=== PATIENT | male | born 1980 | race Caucasian/White ===

== ENCOUNTER 2016-07-27 14:51 | Emergency (ER) | payer SELFPAY ==
--- NOTE | 2016-07-27 15:35 | PDOC ---
Rapid Medical Evaluation Time Seen by Provider: 07/27/16 15:32 Medical Evaluation: I have performed a brief in-person evaluation of this patient. The patient presents with a chief complaint of: 36 yo M presents with 6/10 pain to L arm. He states he has had the pain for a week, worse x1 day. Does not recall any injury. Pertinent physical exam findings: FROM L shoulder, unable to reproduce pain with ROM. Arm is nontender to palpation. I have ordered the following: none. The patient will proceed to the ED for further evaluation.
[2016-07-27 15:36] VITALS: BP 151/79; PULSE 95; TEMP 98; BMI 26.5
[2016-07-27] MEDS ORDERED: KETOROLAC TROMETHAMINE 60 MG/2 ML VIAL IM ONE (16:25)
--- NOTE | 2016-07-27 16:29 | PDOC ---
History of Present Illness - General Chief Complaint: Pain, Acute Stated Complaint: PAIN Time Seen by Provider: 07/27/16 15:32 History Source: Patient Exam Limitations: No Limitations - History of Present Illness Initial Comments: 07/27/16 16:26 36 yr male with left arm pain, numbness tingling for one week worse when sleeping on the arm . no chest pain or dizzyness, pain exacerbated with driving shuttle bus. Pt is left hand dominant denies injury. no meds taken [employer]. Occurred: reports: last week Extremity Pain Location - Extremity Pain Location Extremity Pain Locations: left: arm (upper outer bicep left side) Past History - Travel Traveled outside of the country in the last 30 days: No Close contact w/someone who was outside of country & ill: No - Past Medical History Allergies/Adverse Reactions: Allergies Allergy/AdvReac Type Severity Reaction Status Date / Time No Known Allergies Allergy Verified 07/27/16 15:36 Home Medications: Ambulatory Orders Cyclobenzaprine HCl [Flexeril 10 mg] 5 mg PO TID PRN #21 tablet 07/27/16 Naproxen [Naprosyn -] 500 mg PO BID PRN #14 tablet 07/27/16 Other medical history: pt denies medical history - Surgical History Other Surgical History: 07/27/16 16:27 none - Psycho/Social/Smoking Cessation Hx Anxiety: No Suicidal Ideation: No Smoking Status: Yes Smoking History: Current every day smoker Have you smoked in the past 12 months: Yes Number of Cigarettes Smoked Daily: 10 Information on smoking cessation initiated: Yes 'Breaking Loose' booklet given: 07/27/16 Hx Alcohol Use: No Drug/Substance Use Hx: No Substance Use Type: None Review of Systems - Review of Systems Able to Perform ROS?: Yes Is the patient limited Spanish proficient: No Constitutional: No: Symptoms Reported HEENTM: No: Symptoms Reported Respiratory: No: Symptoms reported Cardiac (ROS): No: Symptoms Reported ABD/GI: No: Symptoms Reported : No: Symptoms Reported Musculoskeletal: Yes: See HPI *Physical Exam - Vital Signs Last Vital Signs Temp Pulse Resp BP Pulse Ox 98.0 F 95 H 16 151/79 97 07/27/16 15:32 07/27/16 15:32 07/27/16 15:32 07/27/16 15:32 07/27/16 15:32 - Physical Exam General Appearance: Yes: Nourished, Appropriately Dressed HEENT: positive: EOMI, KI, Normal ENT Inspection, TMs Normal, Pharynx Normal Neck: positive: Supple, Tender lateral (mild tenderness left lateral neck no vetebral tenderness). negative: Tender Respiratory/Chest: positive: Lungs Clear, Normal Breath Sounds Cardiovascular: positive: Regular Rhythm, Regular Rate Gastrointestinal/Abdominal: positive: Normal Bowel Sounds, Soft Musculoskeletal: positive: Normal Inspection Extremity: positive: Normal Capillary Refill, Normal Inspection, Normal Range of Motion. negative: Swelling, Inflammation Integumentary: positive: Normal Color, Dry, Warm Neurologic: positive: Fully Oriented, Alert, Normal Mood/Affect, Normal Response , Motor Strength 5/5 Heart Score/ECG Review - History History: Slightly suspicious (read by no STEMI) - ECG Intrepretation Comment:: 07/27/16 16:49 sinus tach ED Treatment Course - LABORATORY CBC & Chemistry Diagram: 07/27/16 17:00 07/27/16 17:00 - RADIOLOGY Radiology Studies Ordered: Category Date Time Status SPINE-CERVICAL [RAD] Stat Radiology 07/27/16 16:25 Ordered Medical Decision Making - Medical Decision Making 07/27/16 16:28 cc: left upper arm pain for one week worse after sleeping on the arm 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 no redness, skin intact no headache or dizzyness, no chest pain 07/27/16 16:51 will do basic lab work 07/27/16 17:15 labs are WNL will dc home with follow up at [facility] and with ortho pt states pain is improved with the toradol 07/27/16 18:07 *DC/Admit/Observation/Transfer Diagnosis at time of Disposition: Musculoskeletal arm pain Qualifiers: Laterality: left Qualified Code(s): M79.602 - Pain in left arm - Discharge Dispostion Disposition: HOME Condition at time of disposition: Good - Prescriptions Prescriptions: Cyclobenzaprine HCl [Flexeril 10 mg] 5 mg PO TID PRN #21 tablet PRN Reason: muscle spasm Naproxen [Naprosyn -] 500 mg PO BID PRN #14 tablet PRN Reason: Pain - Referrals Referrals: [facility] [Provider Group] Esequiel Morales MD [Staff Physician] - - Patient Instructions Additional Instructions: take the medication as prescribed DO NOT DRIVE, DRINK ALCOHOL OR OPERATE MACHINERY WHILE TAKING FLEXERIL follow with the orthopedist for follow up or at [facility] for [facility] care all labs done today are normal
[2016-07-27] MEDS ORDERED: KETOROLAC TROMETHAMINE 30 MG/1 ML VIAL ONE (16:47)
[2016-07-27 17:20] LABS: MCH 31.8 pg (25.7-33.7); MCHC 34.7 g/dl (32.0-35.9); MEAN CELL VOLUME 91.7 fl (80-96); MEAN PLT VOLUME 9.6 fl (7.5-11.1); PLATELET COUNT 221 K/MM3 (134-434); RDW 13.3 % (11.9-15.9); WHITE BLOOD COUNT 11.6 K/mm3 (4.0-10.0)
[2016-07-27 17:43] LABS: ALBUMIN 4.5 g/dl (3.4-5.0); ANION GAP 10 (8-16); BILIRUBIN,TOTAL 0.6 mg/dL (0.2-1.0); CALCIUM 9.3 mg/dL (8.5-10.1); CO2 25 mmol/L (21-32); CREATININE 0.9 mg/dL (0.7-1.3); GLUCOSE,RANDOM 134 mg/dL (74-106); SGPT/ALT 64 U/L (12-78); TOT PROT 7.8 g/dl (6.4-8.2)
[2016-07-27 17:45] LABS: ALK PHOS 89 U/L (45-117); SGOT/AST 24 U/L (15-37); TROPONIN I < 0.02 ng/ml (0.00-0.05)
--- NOTE | 2016-07-28 10:45 | EKG ---
Test Reason : Blood Pressure : / mmHG Vent. Rate : 102 BPM Atrial Rate : 102 BPM P-R Int : 144 ms QRS Dur : 094 ms QT Int : 356 ms P-R-T Axes : 068 044 042 degrees QTc Int : 463 ms SINUS TACHYCARDIA POSSIBLE ANTERIOR INFARCT , AGE UNDETERMINED ABNORMAL ECG NO PREVIOUS ECGS AVAILABLE Confirmed by BRAD FRANKLIN, CHINTAN ([id number]) on 07/28/2016 10:45:41 AM Referred By: Confirmed By:CHINTAN SALINAS MD
== END 2016-07-27 18:22 | disposition home or self-care (01) ==
LOC: JERFT 14:51
PROC: 3E0233Z Introduction of Anti-inflammatory into Muscle, Percutaneous Approach (ICD-10-PCS; principal; 2016-07-27)
DX: M79.602 Pain in left arm (principal); F17.210 Nicotine dependence, cigarettes, uncomplicated
CPT/HCPCS: 36415; 72050-TC; 80053; 82550; 82553; 84484; 85027; 85379; 93005; 93010; 99281-25

== ENCOUNTER 2016-08-18 14:09 | Emergency (ER) | payer SELFPAY ==
[2016-08-18 14:26] VITALS: BP 142/96; PULSE 85; TEMP 97.6; BMI 26.5
[2016-08-18] MEDS ORDERED: KETOROLAC TROMETHAMINE 60 MG/2 ML VIAL ONE (14:39)
[2016-08-18] MEDS ORDERED: KETOROLAC TROMETHAMINE 60 MG/2 ML VIAL IM ONE (14:39)
--- NOTE | 2016-08-18 14:56 | PDOC ---
[id number] LEFT ARM PAIN Time Seen by Provider: 08/18/16 14:17 History Source: Patient Exam Limitations: No Limitations - History of Present Illness Initial Comments: 08/18/16 14:54 36 yr male with c/o left neck to arm pain for one month. Pt seen here for same early this month states symptoms were improved with flexeril. Pt has not followed up with the orthopedist. no chest pain denies trauma, pt is left hand dominant. Pt states the pain is reproduced with turning neck to the left and raising arm above head causes pain to the back of shoulder and neck. 08/18/16 16:06 Severity: reports: mild Past History - Past Medical History Allergies/Adverse Reactions: Allergies Allergy/AdvReac Type Severity Reaction Status Date / Time No Known Allergies Allergy Verified 08/18/16 14:13 Home Medications: Ambulatory Orders Naproxen [Naprosyn -] 500 mg PO BID PRN #14 tablet 07/27/16 Cyclobenzaprine HCl [Flexeril 10 mg] 5 mg PO TID PRN #21 tablet 08/18/16 Methylprednisolone [Medrol Dose Suraj] 4 mg PO ASDIR #21 tablet 08/18/16 Other medical history: denies - Psycho/Social/Smoking Cessation Hx Anxiety: No Suicidal Ideation: No Smoking Status: Yes Smoking History: Current every day smoker Have you smoked in the past 12 months: Yes Number of Cigarettes Smoked Daily: 5 Information on smoking cessation initiated: Yes 'Breaking Loose' booklet given: 08/18/16 Hx Alcohol Use: No Drug/Substance Use Hx: No Substance Use Type: None Trauma Specific PMHX - Complaint Specific PMHX Arthritis: No Back Injury: No Neck Injury: No Hx Sacro Iliac Joint Dysfunction: No Review of Systems - Review of Systems Able to Perform ROS?: Yes Is the patient limited Cook Islander proficient: No Constitutional: No: Symptoms Reported HEENTM: No: Symptoms Reported Respiratory: No: Symptoms reported Cardiac (ROS): No: Symptoms Reported ABD/GI: No: Symptoms Reported : No: Symptoms Reported Musculoskeletal: Yes: Symptoms Reported, See HPI Integumentary: No: Symptoms Reported Neurological: No: Symptoms reported *Physical Exam - Vital Signs Last Vital Signs Temp Pulse Resp BP Pulse Ox 97.6 F 85 18 142/96 99 08/18/16 14:11 08/18/16 14:11 08/18/16 14:11 08/18/16 14:11 08/18/16 14:11 - Physical Exam General Appearance: Yes: Nourished, Appropriately Dressed HEENT: positive: EOMI, KI, Normal ENT Inspection, TMs Normal, Pharynx Normal Neck: positive: Tender, Supple, Tender lateral. negative: Tender midline Respiratory/Chest: positive: Lungs Clear, Normal Breath Sounds Cardiovascular: positive: Regular Rhythm, Regular Rate Gastrointestinal/Abdominal: positive: Normal Bowel Sounds, Soft Musculoskeletal: positive: Normal Inspection, Muscle Spasm (left trapezius to sternoclemastoid tender, spasm , nv intact FROM ). negative: CVA Tenderness, CVA Tenderness (R), CVA Tenderness (L), Vertebral Tenderness Extremity: positive: Normal Capillary Refill, Normal Inspection, Normal Range of Motion Integumentary: positive: Normal Color, Dry, Warm Neurologic: positive: Fully Oriented, Alert, Normal Mood/Affect, Normal Response , Motor Strength / ED Treatment Course - Medications Given in the ED: ED Medications Discontinued Medications Generic Name Dose Route Start Last Admin Trade Name Freq PRN Reason Stop Dose Admin Ketorolac Tromethamine 60 mg 08/18/16 14:39 08/18/16 14:44 Toradol Injection - IM 08/18/16 14:40 60 mg ONCE ONE Administration Medical Decision Making - Medical Decision Making 08/18/16 16:09 cc: neck pain to left arm for one month worse at night, worse with lifting heavy objects intermittent numbness and tingling to arm pt states no chest pain pt states same symptoms as previous visit ran out of flexeril will give toradol medrol dose pack and flexeril 08/18/16 16:11 pt given copy of xray done last visit to bring to orthopedist *DC/Admit/Observation/Transfer Diagnosis at time of Disposition: Cervical radiculopathy - Discharge Dispostion Disposition: HOME Condition at time of disposition: Good - Prescriptions Prescriptions: Cyclobenzaprine HCl [Flexeril 10 mg] 5 mg PO TID PRN #21 tablet PRN Reason: muscle spasm Methylprednisolone [Medrol Dose Suraj] 4 mg PO ASDIR #21 tablet - Referrals Referrals: Quan Zimmerman MD [Staff Physician] - Kole Beard MD [Staff Physician] - - Patient Instructions Additional Instructions: apply warm heating pad or compresses to your neck and left side every 4hrs for 20 minutes take the medrol dose pack as prescribed with the muscle relaxant DO NOT DRIVE, OPERATE MACHINERY OR DRINK ALCOHOL avoid using left hand to type, text as this can make symptoms worse follow with the orthopedist Dr. George or for follow up next week call to set up appointment return to ER for any worseinng pain - Post Discharge Activity Work/School Note: Back to Work
== END 2016-08-18 15:08 | disposition home or self-care (01) ==
LOC: JERFT 14:09 → JER 14:09 → JERFT 15:08
PROC: 3E0233Z Introduction of Anti-inflammatory into Muscle, Percutaneous Approach (ICD-10-PCS; principal; 2016-08-18)
DX: M54.12 Radiculopathy, cervical region (principal); F17.210 Nicotine dependence, cigarettes, uncomplicated
CPT/HCPCS: 99281-25

== ENCOUNTER 2021-10-09 19:05 | Emergency (ER) | payer OTHER ==
[2021-10-09 19:25] VITALS: BP 107/75; PULSE 105; TEMP 98; BMI 26.2
== END 2021-10-09 21:01 | disposition home or self-care (01) ==
LOC: JERFT 19:05
PROC: 0H9FXZZ Drainage of Right Hand Skin, External Approach (ICD-10-PCS; principal; 2021-10-09)
DX: L08.9 Local infection of the skin and subcutaneous tissue, unspecified (principal)
CPT/HCPCS: 99283-25

== ENCOUNTER 2023-11-22 21:10 | Emergency (ER) | payer OTHER ==
[2023-11-22 21:14] VITALS: BP 130/81; PULSE 105; RESP 20; TEMP 98.4; BMI 25.7
== END 2023-11-22 22:25 | disposition home or self-care (01) ==
LOC: JERFT 21:10
DX: L03.011 Cellulitis of right finger (principal)
CPT/HCPCS: 99283-25

== ENCOUNTER 2023-11-27 16:48 | Emergency (ER) | payer OTHER ==
[2023-11-27 17:00] VITALS: BP 133/86; PULSE 111; RESP 18; TEMP 98.7; BMI 24.7
[2023-11-27] MEDS ORDERED: SULFAMETHOXAZOLE/TRIMETHOPRIM 800MG/160MG D.S. TABLET ONE (18:19)
[2023-11-27] MEDS ORDERED: IBUPROFEN 400 MG TABLET (FP) PO ONE (18:19)
[2023-11-27] MEDS ORDERED: ACETAMINOPHEN 500 MG TABLET (FP) ONE (18:20)
[2023-11-27] MEDS: SULFAMETHOXAZOLE/TRIMETHOPRIM 800MG/160MG D.S. TABLET PO ONE (18:23)
[2023-11-27] MEDS: ACETAMINOPHEN 500 MG TABLET (FP) PO ONE (18:23)
[2023-11-27] MEDS: IBUPROFEN 400 MG TABLET (FP) PO ONE (18:23)
== END 2023-11-27 18:30 | disposition home or self-care (01) ==
LOC: JERFT 16:48 → JER 16:48 → JERFT 18:30
PROC: 0H9FXZZ Drainage of Right Hand Skin, External Approach (ICD-10-PCS; principal; 2023-11-27)
DX: L03.011 Cellulitis of right finger (principal); M79.644 Pain in right finger(s)
CPT/HCPCS: 10160; 73130-TC-RT-FY; 99283-25